=== PATIENT | female | born 1945 | race Caucasian/White ===

== ENCOUNTER 2021-08-26 05:52 | Emergency (ER) | payer MEDICARE, MEDICAID ==
[~2021-08-26] VITALS: Ht 157.5 cm; Wt 56.7 kg
[~2021-08-26 05:52] MED LIST: ESOM10SU PO; ZOLP5TAB2 PO
[2021-08-26 05:56] VITALS: BP 170/91
--- NOTE | 2021-08-26 05:56 | NUR ---
PT BIBSELF C/O LEFT HAND SWELLING AND REDNESS S/P BEING BITTEN BY [employer] ON WEDNESDAY. PT AAOX4 BREATHING EVENLY AND UNLABORED. PT ATTACHED TO MONITOR. UPON ASSESSMENT, HAS SWELLING AND REDNESS ON DORSAL SIDE OF HAND. MD AT BEDSIDE. PT GIVEN BLANKET AND CALL LIGHT WITHIN REACH. WILL CONTINUE TO MONITOR
[2021-08-26] MEDS ORDERED: CLIN300C12 PO (06:24)
== END 2021-08-26 06:28 | disposition home or self-care (01) ==
LOC: ER 05:57
DX: L03.114 Cellulitis of left upper limb (principal); I10 Essential (primary) hypertension; K21.9 Gastro-esophageal reflux disease without esophagitis; E78.5 Hyperlipidemia, unspecified; F41.9 Anxiety disorder, unspecified; Z98.890 Other specified postprocedural states; Z60.2 Problems related to living alone; Z79.899 Other long term (current) drug therapy

== ENCOUNTER 2021-11-12 08:42 | Emergency (ER) | payer MEDICARE, OTHER ==
[~2021-11-12] VITALS: Ht 157.5 cm; Wt 54.4 kg
[~2021-11-12 08:42] MED LIST changes: +CLIN300C12 PO
--- NOTE | 2021-11-12 09:00 | NUR ---
[id number] FROM HOME C/O RIGHT FINGERS TINGLING STARTED SEP 2021. THE PATIENT IS ALERT AND ORIENTED X4. DENIES PAIN. IN ROOM AIR AND DENIES SOB. RESPIRATION REGULAR AND UNLABORED. WILL CONTINUE TO MONITOR THE PATIENT.
--- NOTE | 2021-11-12 09:04 | NUR ---
DR MURRAY AT THE BEDSIDE
[2021-11-12 09:45] VITALS: BP 152/84
--- NOTE | 2021-11-12 09:45 | NUR ---
Patient discharged to home in stable condition. Written and verbal after care instructions given. Patient verbalizes understanding of instruction.
== END 2021-11-12 09:46 | disposition home or self-care (01) ==
LOC: ER 09:04
DX: R20.2 Paresthesia of skin (principal); F41.9 Anxiety disorder, unspecified; I10 Essential (primary) hypertension; E78.5 Hyperlipidemia, unspecified; Z87.738 Personal history of other specified (corrected) congenital malformations of digestive system; Z60.2 Problems related to living alone; Z79.2 Long term (current) use of antibiotics

== ENCOUNTER 2025-02-03 17:57 | Emergency (ER) | payer MEDICARE, OTHER ==
[~2025-02-03] VITALS: Ht 157.5 cm; Wt 46.7 kg
[2025-02-03] MEDS ORDERED: TDAP [DIPH/PERTUSSIS/TET] 0.5 ML VIAL IM ONE (18:30)
[2025-02-03] MEDS: TDAP [DIPH/PERTUSSIS/TET] 0.5 ML VIAL IM ONE (18:40)
[2025-02-03 18:53] VITALS: BP 140/80; TEMP 98.3; O2SAT 95
== END 2025-02-03 18:53 | disposition home or self-care (01) ==
LOC: ER 18:03
DX: S90.851A Superficial foreign body, right foot, initial encounter (principal); E78.00 Pure hypercholesterolemia, unspecified; I10 Essential (primary) hypertension; K21.9 Gastro-esophageal reflux disease without esophagitis; F41.9 Anxiety disorder, unspecified; Z60.2 Problems related to living alone; X58.XXXA Exposure to other specified factors, initial encounter; Y93.89 Activity, other specified; Y92.89 Other specified places as the place of occurrence of the external cause; Y99.8 Other external cause status
CPT/HCPCS: 90715

== ENCOUNTER 2025-03-28 11:41 | Emergency (ER) | payer MEDICARE, MEDICAID ==
[~2025-03-28] VITALS: Ht 157.5 cm; Wt 46.7 kg
[2025-03-28] MEDS ORDERED: TDAP [DIPH/PERTUSSIS/TET] 0.5 ML VIAL IM ONE (11:59)
[2025-03-28] MEDS: TDAP [DIPH/PERTUSSIS/TET] 0.5 ML VIAL IM ONE (12:15)
[2025-03-28 12:56] VITALS: BP 136/81; TEMP 98.4; O2SAT 99
== END 2025-03-28 12:56 | disposition home or self-care (01) ==
LOC: ER 11:45
DX: S93.692A Other sprain of left foot, initial encounter (principal); S80.212A Abrasion, left knee, initial encounter; I10 Essential (primary) hypertension; E78.5 Hyperlipidemia, unspecified; W17.89XA Other fall from one level to another, initial encounter; Y93.89 Activity, other specified; Y92.89 Other specified places as the place of occurrence of the external cause; Y99.8 Other external cause status
CPT/HCPCS: 73564-TC; 73630-TC; 90715

== ENCOUNTER 2025-03-31 09:22 | Emergency (ER) | payer MEDICARE, OTHER ==
[~2025-03-31] VITALS: Ht 162.6 cm; Wt 50.8 kg
[2025-03-31 11:15] VITALS: BP 144/84; TEMP 98.3; O2SAT 99
== END 2025-03-31 11:16 | disposition home or self-care (01) ==
LOC: ER 09:24
DX: S76.011A Strain of muscle, fascia and tendon of right hip, initial encounter (principal); S83.91XA Sprain of unspecified site of right knee, initial encounter; S80.212A Abrasion, left knee, initial encounter; M79.672 Pain in left foot; E78.5 Hyperlipidemia, unspecified; I10 Essential (primary) hypertension; K21.9 Gastro-esophageal reflux disease without esophagitis; F41.9 Anxiety disorder, unspecified; Z60.2 Problems related to living alone; W01.0XXA Fall on same level from slipping, tripping and stumbling without subsequent striking against object, initial encounter; Y93.89 Activity, other specified; Y92.89 Other specified places as the place of occurrence of the external cause; Y99.8 Other external cause status
CPT/HCPCS: 73502; 73564-TC

== ENCOUNTER 2025-09-18 21:59 | Emergency (ER) | payer MEDICARE, OTHER ==
[~2025-09-18] VITALS: Ht 154.9 cm; Wt 45.4 kg
[2025-09-18 23:56] LABS: PLATELET COUNT (AUTO) 219 K/uL (150-450); RED BLOOD CELL COUNT(AUTO) 3.75 MIL/uL (4.0-5.2); RED CELL DISTRIBUTION WIDTH 13.4 % (11.5-15.0); WHITE BLOOD COUNT (AUTO) 6.3 K/uL (4.3-11.0)
[2025-09-19 00:03] LABS: CALCIUM, SERUM 9.7 mg/dL (8.5-10.1); CREATININE 1.0 mg/dL (0.6-1.3); SODIUM SERUM 142 mmol/L (136-145); UREA NITROGEN, BLOOD 19 mg/dL (7-18)
[2025-09-19 00:09] LABS: INR 0.96 (0.91-1.10)
[2025-09-19 00:10] LABS: ASPARTATE AMINOTRANSFERASE 19 U/L (15-37); TOTAL PROTEIN, SERUM 6.3 g/dL (6.4-8.2)
[2025-09-19] MEDS ORDERED: hydrALAZINE HCL IV 20 MG VIAL ONE (00:27)
[2025-09-19] MEDS: hydrALAZINE HCL IV 20 MG VIAL IV ONE (00:28)
[2025-09-19 01:09] VITALS: BP 161/67; TEMP 98; O2SAT 97
== END 2025-09-19 01:09 | disposition home or self-care (01) ==
LOC: ER 22:05
DX: I16.0 Hypertensive urgency (principal); F41.9 Anxiety disorder, unspecified; E78.00 Pure hypercholesterolemia, unspecified; R51.9 Headache, unspecified; I11.9 Hypertensive heart disease without heart failure
CPT/HCPCS: 99285; 70450; 71045; 93005; 85025; 80048; 80076; 36415; 84484; 85730; 96374; J0360